=== PATIENT | female | born 1960 | race Caucasian/White ===

== ENCOUNTER 2017-06-12 17:29 | Emergency (ER) | payer OTHER ==
[2017-06-12 17:54] LABS: Glucose,Whole Blood 94 mg/dL (75-99)
[2017-06-12] MEDS ORDERED: SODIUM CHLORIDE 0.9% 500 ML IV STA (18:03)
[2017-06-12] MEDS ORDERED: ONDANSETRON 4 MG/2 ML VIAL IVP STA ×2 (18:03→19:30)
[2017-06-12] MEDS ORDERED: SODIUM CHLORIDE 0.9% 1,000 ML IV STA (18:03)
--- NOTE | 2017-06-12 18:10 | ED ---
Dizziness HPI - General Chief Complaint: Dizziness Stated Complaint: dizziness; fall at home yesterday Time Seen by Provider: 06/12/17 17:36 Source: patient Mode of arrival: wheelchair Limitations: no limitations - History of Present Illness Initial Comments: 56 years old female fell down stairs yesterday she came down 12 STA[address] he hit her head against the hard surface no she has a large abrasion on her scalp with for about 5 cm diameter missing hair, just complaining about any neck pain and left shoulder pain and swelling abrasion on the left knee. She denies any chest pain or palpitation prior to the fall she has no history of coronary artery disease or any arrhythmias. Denies any headache has a neck pain no chest pain no shortness of breath does complaining about left shoulder pain and the left knee pain. Her tetanus is up-to-date - Related Data Home Medications Medication Instructions Recorded Confirmed Cholecalciferol [Vitamin D3] 5,000 unit PO DAILY 06/12/17 06/12/17 Insulin Aspart [Novolog Flexpen] 24 - 30 unit SQ AC-TID 06/12/17 06/12/17 Insulin Detemir [Levemir Flextouch] 50 - 60 unit SQ HS 06/12/17 06/12/17 Liraglutide [Victoza 2-Venkat] 1.8 mg SQ DAILY 06/12/17 06/12/17 Lisinopril-Hctz 20-25 mg 1 tab PO DAILY 06/12/17 06/12/17 [Zestoretic 20-25] Multivitamins, Thera [Multivitamin 1 tab PO DAILY 06/12/17 06/12/17 (formulary)] amLODIPine BESYLATE [Norvasc] 10 mg PO DAILY 06/12/17 06/12/17 metFORMIN HCL [Glucophage] 1,000 mg PO BID 06/12/17 06/12/17 Previous Rx's Medication Instructions Recorded Metoclopramide [Reglan] 10 mg PO ACHS #15 tab 06/12/17 traMADol HCL [Ultram] 50 mg PO Q8HR PRN #20 tab 06/12/17 Allergies Allergy/AdvReac Type Severity Reaction Status Date / Time No Known Allergies Allergy Verified 06/12/17 18:08 Review of Systems ROS Statement: Those systems with pertinent positive or pertinent negative responses have been documented in the HPI. ROS Other: All systems not noted in ROS Statement are negative. Past Medical History Past Medical History: Diabetes Mellitus History of Any Multi-Drug Resistant Organisms: None Reported Past Surgical History: Joint Replacement Past Psychological History: No Psychological Hx Reported Smoking Status: Never smoker Past Alcohol Use History: None Reported Past Drug Use History: None Reported General Exam - General Exam Comments Initial Comments: General: The patient is awake and alert, in no distress, and does not appear acutely ill. Skin: Skin is warm and dry and no rashes or lesions are noted. On her scalp she has a area about 5 cm in diameter got up abrasion which is about 5 cm in size and it is missing hair Eye: Pupils are equal, round and reactive to light, extra-ocular movements are intact; there is normal conjunctiva bilaterally. Ears, nose, mouth and throat: There are moist mucous membranes and no oral lesions. Neck: The neck is tender at C5 and C6 Cardiovascular: There is a regular rate and rhythm. No murmur, rub or gallop is appreciated. Respiratory: To auscultation bilateral, no wheezing no rhonchi no distress respiratory neves noticed Gastrointestinal: Soft, non-distended, non-tender abdomen without masses or organomegaly noted. There is no rebound or guarding present. Bowel sounds are unremarkable. Back: There is no tenderness to palpation in the midline. There is no obvious deformity. Musculoskeletal: Normal ROM, no tenderness, There is no pedal edema. There is no calf tenderness or swelling. No cords were appreciated. Neurological: CN II-XII intact, Cranial nerves III through XII are intact. There are no obvious motor or sensory deficits. Coordination appears grossly intact. Speech is normal. Psychiatric: Cooperative, appropriate mood & affect, normal judgment. Limitations: no limitations Course Vital Signs 06/12/17 17:32 Temperature 97.5 F L Pulse Rate 80 Respiratory 20 Rate Blood Pressure 147/65 O2 Sat by Pulse 98 Oximetry She is reassessed at 8 PM, shoulder x-ray any x-ray are unremarkable. EKG Findings - EKG Comments: EKG Findings:: EKG is normal sinus rhythm ventricular rate is 81 OR interval is 164 QRS duration is 96 QT/QTC 394/457 review of this EKG does not reveal any ST elevation or ST depression Medical Decision Making - Lab Data Result diagrams: 06/12/17 18:20 06/12/17 18:20 Lab Results 02/06/12/17 06/12/17 Range/Units 17:52 18:20 18:20 WBC 11.5 H (3.8-10.6) k/uL RBC 4.68 (3.80-5.40) m/uL Hgb 12.6 (11.4-16.0) gm/dL Hct 40.2 (34.0-46.0) % MCV 86.0 (80.0-100.0) fL MCH 27.0 (25.0-35.0) pg MCHC 31.4 (31.0-37.0) g/dL RDW 14.7 (11.5-15.5) % Plt Count 410 (150-450) k/uL Neutrophils % 77 % Lymphocytes % 13 % Monocytes % 4 % Eosinophils % 4 % Basophils % 0 % Neutrophils # 8.8 H (1.3-7.7) k/uL Lymphocytes # 1.5 (1.0-4.8) k/uL Monocytes # 0.4 (0-1.0) k/uL Eosinophils # 0.5 (0-0.7) k/uL Basophils # 0.1 (0-0.2) k/uL Sodium 135 L (137-145) mmol/L Potassium 4.5 (3.5-5.1) mmol/L Chloride 98 (98-107) mmol/L Carbon Dioxide 27 (22-30) mmol/L Anion Gap 10 mmol/L BUN 28 H (7-17) mg/dL Creatinine 0.83 (0.52-1.04) mg/dL Est GFR (MDRD) Af Amer >60 (>60 ml/min/1.73 sqM) Est GFR (MDRD) Non-Af >60 (>60 ml/min/1.73 sqM) Glucose 117 H (74-99) mg/dL POC Glucose (mg/dL) 94 (75-99) mg/dL POC Glu Road [employer] ID Abby Chow Calcium 9.3 (8.4-10.2) mg/dL Total Bilirubin 0.3 (0.2-1.3) mg/dL AST 29 (14-36) U/L ALT 34 (9-52) U/L Alkaline Phosphatase 66 (38-126) U/L Troponin I (0.000-0.034) ng/mL Total Protein 6.5 (6.3-8.2) g/dL Albumin 3.7 (3.5-5.0) g/dL Urine Color Urine Appearance (Clear) Urine pH (5.0-8.0) Ur Specific Rumsey (1.001-1.035) Urine Protein (Negative) Urine Glucose (UA) (Negative) Urine Ketones (Negative) Urine Blood (Negative) Urine Nitrite (Negative) Urine Bilirubin (Negative) Urine Urobilinogen (<2.0) mg/dL Ur Leukocyte Esterase (Negative) 06/12/17 06/12/17 Range/Units 18:20 18:20 WBC (3.8-10.6) k/uL RBC (3.80-5.40) m/uL Hgb (11.4-16.0) gm/dL Hct (34.0-46.0) % MCV (80.0-100.0) fL MCH (25.0-35.0) pg MCHC (31.0-37.0) g/dL RDW (11.5-15.5) % Plt Count (150-450) k/uL Neutrophils % % Lymphocytes % % Monocytes % % Eosinophils % % Basophils % % Neutrophils # (1.3-7.7) k/uL Lymphocytes # (1.0-4.8) k/uL Monocytes # (0-1.0) k/uL Eosinophils # (0-0.7) k/uL Basophils # (0-0.2) k/uL Sodium (137-145) mmol/L Potassium (3.5-5.1) mmol/L Chloride (98-107) mmol/L Carbon Dioxide (22-30) mmol/L Anion Gap mmol/L BUN (7-17) mg/dL Creatinine (0.52-1.04) mg/dL Est GFR (MDRD) Af Amer (>60 ml/min/1.73 sqM) Est GFR (MDRD) Non-Af (>60 ml/min/1.73 sqM) Glucose (74-99) mg/dL POC Glucose (mg/dL) (75-99) mg/dL POC Glu Road Contractor ID Calcium (8.4-10.2) mg/dL Total Bilirubin (0.2-1.3) mg/dL AST (14-36) U/L ALT (9-52) U/L Alkaline Phosphatase (38-126) U/L Troponin I <0.012 (0.000-0.034) ng/mL Total Protein (6.3-8.2) g/dL Albumin (3.5-5.0) g/dL Urine Color Yellow Urine Appearance Clear (Clear) Urine pH 6.5 (5.0-8.0) Ur Specific Rumsey 1.016 (1.001-1.035) Urine Protein Negative (Negative) Urine Glucose (UA) 4+ H (Negative) Urine Ketones Negative (Negative) Urine Blood Negative (Negative) Urine Nitrite Negative (Negative) Urine Bilirubin Negative (Negative) Urine Urobilinogen <2.0 (<2.0) mg/dL Ur Leukocyte Esterase Negative (Negative) Disposition Clinical Impression: Head injury, Neck injury, Fall Disposition: HOME SELF-CARE Condition: Good Instructions: Dizziness (ED) Prescriptions: Metoclopramide [Reglan] 10 mg PO ACHS #15 tab traMADol HCL [Ultram] 50 mg PO Q8HR PRN #20 tab PRN Reason: Pain Referrals: Ayden Parsons MD [Primary Care Provider] - 1-2 days
[2017-06-12] MEDS ORDERED: ACETAMINOPHEN TAB 500 MG TAB PO STA (18:11)
[2017-06-12 18:39] LABS: Appearance,Urine Clear (Clear); Bilirubin,Urine Negative (Negative); Blood,Urine Negative (Negative); Color,Urine Yellow; Glucose,Urine (UA) 4+ (Negative); Ketones,Urine Negative (Negative); Leukocyte Esterase,Urine Negative (Negative); Nitrite,Urine Negative (Negative); PH, Urine 6.5 (5.0-8.0); Protein,Urine Negative (Negative); Specific Gravity,Urine 1.016 (1.001-1.035); Urobilinogen,Urine <2.0 mg/dL (<2.0)
[2017-06-12 18:45] LABS: Basophils # (A) 0.1 k/uL (0-0.2); Basophils % (A) 0 %; Eosinophils # (A) 0.5 k/uL (0-0.7); Eosinophils % (A) 4 %; HCT 40.2 % (34.0-46.0); HGB 12.6 gm/dL (11.4-16.0); Lymphocytes # (A) 1.5 k/uL (1.0-4.8); Lymphocytes % (A) 13 %; MCHC 31.4 g/dL (31.0-37.0); Mean Platelet Volume 6.2; Monocytes # (A) 0.4 k/uL (0-1.0); Monocytes % (A) 4 %; Neutrophils # (A) 8.8 k/uL (1.3-7.7); Neutrophils % (A) 77 %; Platelet Count 410 k/uL (150-450); RBC 4.68 m/uL (3.80-5.40); RDW 14.7 % (11.5-15.5); WBC 11.5 k/uL (3.8-10.6)
[2017-06-12 18:51] LABS: ALT 34 U/L (9-52); AST 29 U/L (14-36); Albumin 3.7 g/dL (3.5-5.0); Alkaline Phosphatase 66 U/L (38-126); Anion Gap 10 mmol/L; Blood Urea Nitrogen 28 mg/dL (7-17); Calcium 9.3 mg/dL (8.4-10.2); Carbon Dioxide 27 mmol/L (22-30); Chloride 98 mmol/L (98-107); Glucose 117 mg/dL (74-99); Potassium 4.5 mmol/L (3.5-5.1); Sodium 135 mmol/L (137-145); Total Bilirubin 0.3 mg/dL (0.2-1.3); Total Protein 6.5 g/dL (6.3-8.2)
--- NOTE | 2017-06-12 19:18 | CT ---
EXAMINATION TYPE: CT brain lisandra guan DATE OF EXAM: 06/12/2017 COMPARISON: NONE HISTORY: Fall down stairs last night. Injury to top of head. Dizziness. CT DLP: 1581.4 mGycm. Automated Exposure Control for Dose Reduction was Utilized. TECHNIQUE: CT scan of the head and cervical spine are performed without contrast. FINDINGS: There is no acute intracranial hemorrhage, mass effect, or midline shift identified. The ventricles and sulci are within normal limits in size. The globes are intact and the visualized sin uses are clear. The calvarium is intact. Cervical spine is visualized in its entirety from C1 through upper thoracic levels and demonstrates s atisfactory alignment without evidence of acute fracture or dislocation. Prevertebral soft tissue ap pears within normal limits. The C1-C2 articulation is within normal limits on the coronal images. Vertebral body heights and disc space heights are maintained. There is mild to moderate disc space na rrowing and moderate spurring C5-C6 level. Visualized lung apices are clear. Thyroid gland is unremar kable. Note is made of asymmetrically more prominent left submandibular gland felt present axial imag e 37 versus adenopathy, this is felt contiguous with submandibular gland on sagittal images. IMPRESSION: 1. There is no acute fracture or dislocation evident in the cervical spine. 2. No acute intracranial hemorrhage, mass effect, or midline shift is seen.
[2017-06-12] MEDS ORDERED: MECLIZINE 12.5 MG TAB PO STA (19:26)
[2017-06-12] MEDS ORDERED: ONDANSETRON 4 MG in SODIUM CHLORIDE 0.9% 50 ML IVPB ONE (19:27)
--- NOTE | 2017-06-12 19:54 | XR ---
EXAMINATION TYPE: XR knee complete LT DATE OF EXAM: 06/12/2017 CLINICAL HISTORY: Left knee pain after fall injury today. TECHNIQUE: Three views of the left knee are obtained. COMPARISON: None. FINDINGS: There is no acute fracture/dislocation evident in left knee. There is [id number] tri compartmental joint space loss and moderate spurring. The overlying soft tissue appears unremarkable . IMPRESSION: There is no acute fracture or dislocation in the left knee.
--- NOTE | 2017-06-12 19:54 | XR ---
EXAMINATION TYPE: XR shoulder complete LT DATE OF EXAM: 06/12/2017 CLINICAL HISTORY: Follow injury today with pain TECHNIQUE: Three views of the left shoulder are obtained. COMPARISON: None. FINDINGS: There is no acute fracture/dislocation evident in the left shoulder. The acromioclavicula r and glenohumeral joint spaces appear within normal limits. The visualized ribs are intact and unre markable. IMPRESSION: There is no acute fracture or dislocation in the left shoulder.
[2017-06-12 20:55] VITALS: BP 159/66; PULSE 74; RESP 17; TEMP 98
== END 2017-06-12 21:10 | disposition home or self-care (01) ==
LOC: EC 17:29
DX: S00.01XA Abrasion of scalp, initial encounter (principal); S19.9XXA Unspecified injury of neck, initial encounter; M25.512 Pain in left shoulder; M25.562 Pain in left knee; Z79.4 Long term (current) use of insulin; Z79.899 Other long term (current) drug therapy; W10.9XXA Fall (on) (from) unspecified stairs and steps, initial encounter; Y92.009 Unspecified place in unspecified non-institutional (private) residence as the place of occurrence of the external cause
CPT/HCPCS: 36415; 93005; 80053; 84484; 85025; 81003; 73030; 73562; 72125; 70450; 99284; 96374; 96376; 96361 ×4; J2405